=== PATIENT | male | born 1950 | race Native Hawaiian/Other Pacific Islander ===

== ENCOUNTER → 2017-03-22 | Outpatient (CLI) | payer MEDICARE ==
[~2017-03-22] MED LIST: AMLO5TAB22 PO; CARV12.52 PO; CLOP75 PO; HYDR-3535 PO; LISI-363 PO; PROT40TA PO; SIMV20 PO; TIOT18I INH
[2017-03-22 08:38] LABS: BLOOD GAS BASE EXCESS 0.2 mmol/L (-2-2); BLOOD GAS CARBOXYHEMOGLOBIN 2.9 % (0-4); BLOOD GAS HCO3 24 mmol/L (22-26); BLOOD GAS METHEMOGLOBIN 1.2 % (0-2); BLOOD GAS O2 HGB SATURATION 91 % (90-100); BLOOD GAS PCO2 39 mmHG (38-42); BLOOD GAS PO2 73 mmHG (61-120); BLOOD GAS TOTAL HGB 17.2 G/DL (12.0-16.0); CRITICAL VALUE NO; DRAW SITE RT RADIAL; NUMBER OF ARTERIAL PUNCTURES 1; OXYGEN DEVICE RA; STAT NO; TEMP CORR TO 98.6; ULNAR PULSE Y
--- NOTE | 2017-03-24 11:38 | RSPPFT ---
DATE OF PROCEDURE: 03/22/17 COMMENTS: Spirometry with FVC of 2.4 at 80% of predicted, FEV1 of 1.5 at 73%, FEV1/FVC ratio is decreased. Flow is decreased at FEF 25-, FEF 50, FEF 75 and FEF 25-75. There is no response after bronchodilator treatment. Lung volumes show residual volume is increased. TLC is normal. Diffusion capacity is normal. Flow volume loop indicates an obstructive pattern. Room air arterial Blood gases show pH of 7.41, PCO2 of 39, PO2 of 73, BiCarb of 24 and O2 Saturation at 91%. IMPRESSION: 1. Mild obstructive lung disease. 2. No response after bronchodilator treatment. 3. Lung volumes show hyperinflation and air trapping. 4. Diffusion capacity is normal. 5. Blood gases show mild hypoxia on room air.
== END ==
LOC: PHRSP 08:09
PROVIDERS: ATTEND Specialist
DX: J44.9 Chronic obstructive pulmonary disease, unspecified (principal)
CPT/HCPCS: 36600; 82805; 94060; 94726; 94729

== ENCOUNTER → 2018-02-07 | Outpatient (CLI) | payer MEDICARE ==
--- NOTE | 2018-02-10 11:08 | RSPPFT ---
DATE OF PROCEDURE: 02/07/18 COMMENTS: Spirometry shows FVC of 2.0 at 93% of predicted, FEV1 of 1.3 at 74%, FEV1/FVC ratio is decreased. Flow is decreased at FEF 25, FEF 50, FEF 75 and FEF 25-75. There is no response after bronchodilator treatment. Lung volumes show residual volume is increased. TLC is normal. Diffusion capacity is normal. Flow volume loop indicates an obstructive pattern. 6-minute walk test shows no de-saturation. IMPRESSION: 1. Mild obstructive lung disease. 2. No response after bronchodilator treatment. 3. Lung volumes show hyperinflation. 4. Normal diffusion capacity. 5. 6-minute walk test shows no de-saturation.
== END ==
LOC: PHRSP 09:29
PROVIDERS: ATTEND Specialist
DX: J44.9 Chronic obstructive pulmonary disease, unspecified (principal)
CPT/HCPCS: 94060; 94618; 94726; 94729